=== PATIENT | male | born 1940 | race Native Hawaiian/Other Pacific Islander ===

== ENCOUNTER 2016-08-10 05:49 | Outpatient (CLI) | payer OTHER, MEDICARE ==
[2016-08-10 06:31] LABS: PLATELET COUNT 161 K/uL (142-355)
[2016-08-10 06:41] LABS: POTASSIUM 4.1 mmol/L (3.6-5.2)
== END 2016-08-10 19:05 | disposition home or self-care (01) ==
LOC: LABW 05:49
PROVIDERS: Internal Medicine
DX: I10 Essential (primary) hypertension (principal); Z12.5 Encounter for screening for malignant neoplasm of prostate; E78.4 Other hyperlipidemia; I25.10 Atherosclerotic heart disease of native coronary artery without angina pectoris
CPT/HCPCS: 36415; 80053; 80061; 84443; 85027; 86140; G0103

== ENCOUNTER 2017-08-16 06:12 | Outpatient (CLI) | payer OTHER, MEDICARE ==
[2017-08-16 06:52] LABS: PLATELET COUNT 151 K/uL (142-355)
[2017-08-16 07:08] LABS: POTASSIUM 4.3 mmol/L (3.6-5.2)
== END 2017-08-16 19:17 | disposition home or self-care (01) ==
LOC: LABW 06:12
PROVIDERS: Internal Medicine
DX: I10 Essential (primary) hypertension (principal); E78.4 Other hyperlipidemia; Z79.899 Other long term (current) drug therapy; Z12.5 Encounter for screening for malignant neoplasm of prostate; Z51.81 Encounter for therapeutic drug level monitoring
CPT/HCPCS: 36415; 80053; 80061; 83036; 84153; 84443; 85027

== ENCOUNTER 2018-09-08 06:18 | Outpatient (CLI) | payer OTHER, MEDICARE ==
[2018-09-08 06:54] LABS: PLATELET COUNT 174 K/uL (142-355)
[2018-09-08 07:14] LABS: POTASSIUM 4.2 mmol/L (3.6-5.2)
== END 2018-09-08 20:15 | disposition home or self-care (01) ==
LOC: LABW 06:18
PROVIDERS: Internal Medicine
DX: Z00.00 Encounter for general adult medical examination without abnormal findings (principal); I25.10 Atherosclerotic heart disease of native coronary artery without angina pectoris; Z79.899 Other long term (current) drug therapy; E78.00 Pure hypercholesterolemia, unspecified; I10 Essential (primary) hypertension; Z12.5 Encounter for screening for malignant neoplasm of prostate
CPT/HCPCS: 36415; 80053; 80061; 83036; 84153; 84443; 85027